=== PATIENT | male | born 1995 | race Caucasian/White ===

== ENCOUNTER 2023-11-08 14:28 | Day surgery (SDC) | payer OTHER ==
[~2023-11-08] VITALS: Ht 185.4 cm; Wt 108.7 kg
[~2023-11-08 14:28] MED LIST: LISI5TAB11 PO
[2023-11-08] MEDS ORDERED: LR 1,000 ML IV SCH (14:35)
[2023-11-08] MEDS ORDERED: LIDOCAINE 2% 100MG/5ML SDV (FOR ANES.) As Ordered ONE (16:30)
[2023-11-08] MEDS ORDERED: propofoL 200 MG/20 ML VIAL As Ordered ONE (16:30)
[2023-11-08] MEDS ORDERED: fentaNYL 100 MCG/2 ML INJECTION As Ordered ONE (16:30)
[2023-11-08] MEDS ORDERED: MIDAZOLAM INJ 2MG/2ML VIAL As Ordered ONE (16:30)
[2023-11-08] MEDS ORDERED: TRANEXAMIC ACID 100 MG/ML 10ML VIAL As Ordered ONE (16:38)
[2023-11-08] MEDS: ceFAZolin SOD 2 GM in IV 1 EA IV ONE (16:47)
[2023-11-08] MEDS: TRANEXAMIC ACID 100 MG/ML 10ML VIAL IV ONE (16:55)
[2023-11-08] MEDS: LIDOCAINE 1% MDV 20ML VIAL As Ordered ONE (17:08)
[2023-11-08] MEDS ORDERED: ACETAMINOPHEN 1000MG 100ML IV BAG As Ordered ONE (17:08)
[2023-11-08 18:18] VITALS: BP 162/82; TEMP 97; O2SAT 100
== END 2023-11-08 18:28 | disposition home or self-care (01) ==
LOC: M SDC 14:28
PROVIDERS: ATTEND Orthopaedic Surgery
DX: S92.424B Nondisplaced fracture of distal phalanx of right great toe, initial encounter for open fracture (principal); W20.8XXA Other cause of strike by thrown, projected or falling object, initial encounter; Y92.89 Other specified places as the place of occurrence of the external cause; Y93.9 Activity, unspecified; I10 Essential (primary) hypertension; Z79.899 Other long term (current) drug therapy
CPT/HCPCS: 11010; 11760; 76000; J0131; J0665; J0690; J2250; J3010

== ENCOUNTER 2025-01-10 02:17 | Emergency (ER) | payer OTHER ==
[2025-01-10 02:53] LABS: PLATELET COUNT, AUTOMATED 238 10^3/uL (150-450)
[2025-01-10 03:10] LABS: AMPHETAMINES LEVEL URINE NEGATIVE (NEGATIVE); BARBITURATES URINE NEGATIVE (NEGATIVE); BENZODIAZEPINES URINE NEGATIVE (NEGATIVE); CANNABINOIDS URINE NEGATIVE (NEGATIVE); COCAINE METABOLITE URINE NEGATIVE (NEGATIVE); METHADONE URINE NEGATIVE (NEGATIVE); OPIATES URINE NEGATIVE (NEGATIVE); PHENCYCLIDINE URINE NEGATIVE (NEGATIVE)
[2025-01-10 03:12] LABS: ETHYL ALCOHOL (ETHANOL) 0.176 % (0.000-0.010)
[2025-01-10 03:13] LABS: SALICYLATE LEVEL < 3.0 MG/DL (<30)
[2025-01-10 03:14] LABS: ALT/SGPT 73 U/L (7.0-40); AST/SGOT 43 U/L (<34); CALCIUM LEVEL 9.3 MG/DL (8.5-10.1); CARBON DIOXIDE LEVEL 27 MMOL/L (20-31); CHLORIDE LEVEL 106 MMOL/L (98-107); CREATININE FOR GFR 1.02 MG/DL (0.70-1.30); GLOMERULAR FILTRATION RATE > 90.0 (>60); POTASSIUM SERUM 4.1 MMOL/L (3.5-5.1); SODIUM LEVEL 145 MMOL/L (136-145)
[2025-01-10] MEDS ORDERED: HOME MED LIST COMPLETE! XX SCH (09:40)
[2025-01-10 09:58] VITALS: BP 146/80; TEMP 97.9; O2SAT 99
[2025-01-10] MEDS: ACETAMINOPHEN 325 MG TAB PO ONE (12:26)
== END 2025-01-10 13:49 | disposition home or self-care (01) ==
LOC: M ED 02:17
DX: F43.20 Adjustment disorder, unspecified (principal); I10 Essential (primary) hypertension